=== PATIENT | female | born 2000 | race Caucasian/White ===

== ENCOUNTER → 2021-03-01 | Emergency (ER) | payer OTHER ==
[~2021-03-01] VITALS: Ht 170.2 cm; Wt 63.5 kg
[2021-03-01 16:23] VITALS: BP_SYST 121
--- NOTE | 2021-03-01 18:16 | NUR ---
Placed in room 2 . Placed on monitor technician, blood pressure machine and pulse oximeter. To gown for exam. Side rails up.
--- NOTE | 2021-03-01 18:18 | NUR ---
PT CAME IN REPORTS ABD CRAMPING AND FEELING LIKE HER BREASTS ARE LARGER THAN NORMAL. REPORTS BEING ON HER MENSTRAL CYCLE
--- NOTE | 2021-03-01 18:20 | NUR ---
Dr Ulloa evaluating patient at bedside
--- NOTE | 2021-03-01 20:30 | NUR ---
Pt eloped from ER at thi time, notified
== END | disposition left against medical advice (07) ==
LOC: SED 16:09
DX: N94.6 Dysmenorrhea, unspecified (principal); Z53.21 Procedure and treatment not carried out due to patient leaving prior to being seen by health care provider